=== PATIENT | male | born 1975 | race African-American/Black ===

== ENCOUNTER 2021-09-24 11:18 | Emergency (ER) | payer MEDICAID ==
[~2021-09-24] VITALS: Ht 180.3 cm; Wt 75.0 kg
[2021-09-24] MEDS ORDERED: ACETAMINOPHEN 325MG TABLET PO ONE (12:15)
[2021-09-24] MEDS ORDERED: IBUPROFEN 400MG TABLET PO ONE (12:15)
[2021-09-24 12:22] VITALS: BP 117/77
[2021-09-24 13:21] LABS: CLARITY URINE TURBID (CLEAR); COLOR URINE YELLOW (YELLOW); KETONES URINE NEGATIVE (NEGATIVE); LEUKOCYTE ESTERASE URINE 3+ (NEGATIVE); NITRITE URINE POSITIVE (NEGATIVE); OCCULT BLOOD URINE 2+ (NEGATIVE); PH URINE 5.5 (4.5-8.0); PROTEIN URINE 1+ (NEGATIVE); SPECIFIC GRAVITY URINE 1.013 (1.005-1.030); UROBILINOGEN URINE 0.2 E.U./dL (0.2-1.0)
[2021-09-24] MEDS ORDERED: LEVOFLOXACIN 500MG TABLET PO ONE (13:30)
[2021-09-24] MEDS ORDERED: LEVOFLOXACIN 250MG TABLET PO ONE (13:45)
[2021-09-24] MEDS ORDERED: IBUP-2028 MT (14:01)
[2021-09-24] MEDS ORDERED: TOPUD PO (14:01)
[2021-09-24] MEDS ORDERED: LEVO750T46 MT (14:01)
== END 2021-09-24 14:11 | disposition home or self-care (01) ==
LOC: ER 12:28
DX: N39.0 Urinary tract infection, site not specified (principal); R10.30 Lower abdominal pain, unspecified; R30.0 Dysuria; N50.812 Left testicular pain; Z87.891 Personal history of nicotine dependence
CPT/HCPCS: 76870; 81003; 87077; 87186; 93976; 99284